=== PATIENT | female | born 1960 | race Caucasian/White ===

== ENCOUNTER → 2019-07-08 08:16 | Outpatient (BNVA) | payer MEDICARE, SELFPAY | PROVIDERS: Family Provider Internal Medicine; PCP Nurse Practitioner; Visit Provider Psychiatry & Neurology Psychiatry | DX: F33.2 Major depressive disorder, recurrent severe without psychotic features (principal); F41.1 Generalized anxiety disorder; F17.200 Nicotine dependence, unspecified, uncomplicated; F11.21 Opioid dependence, in remission; F15.20 Other stimulant dependence, uncomplicated | CPT/HCPCS: 99204 ==

== ENCOUNTER → 2019-08-05 08:28 | Outpatient (BNVA) | payer MEDICARE, SELFPAY | PROVIDERS: Family Provider Internal Medicine; PCP Nurse Practitioner; Visit Provider Psychiatry & Neurology Psychiatry | DX: F41.1 Generalized anxiety disorder (principal); F33.2 Major depressive disorder, recurrent severe without psychotic features; F15.20 Other stimulant dependence, uncomplicated; F11.21 Opioid dependence, in remission; F17.200 Nicotine dependence, unspecified, uncomplicated | CPT/HCPCS: 99214 ==

== ENCOUNTER → 2020-01-01 07:52 | Outpatient (BNVA) | payer MEDICARE, SELFPAY | PROVIDERS: Family Provider Internal Medicine; PCP Nurse Practitioner; Visit Provider Psychiatry & Neurology Psychiatry | DX: F41.1 Generalized anxiety disorder (principal); F33.2 Major depressive disorder, recurrent severe without psychotic features; F15.20 Other stimulant dependence, uncomplicated; F11.21 Opioid dependence, in remission; F17.200 Nicotine dependence, unspecified, uncomplicated; F43.12 Post-traumatic stress disorder, chronic | CPT/HCPCS: 99213 ==

== ENCOUNTER 2020-12-13 02:35 | Emergency (ER) | payer MEDICARE, SELFPAY ==
[2020-12-13 02:36] VITALS: BP 181/105; PULSE 79; RESP 14; TEMP 36.4; O2SAT 99; BMI 24.7
--- NOTE | 2020-12-13 02:54 | CTR_ITS ---
PROCEDURE INFORMATION: Exam: CT Abdomen And Pelvis With Contrast Exam date and time: 12/13/2020 2:54 AM Age: 60 years old Clinical indication: Prior surgery; Surgery type: Appy. RT nephrectomy. ; Patient HX: Severe nausea with back pain. History of renal cancer. ; Additional info: Rule out back infection TECHNIQUE: Imaging protocol: Computed tomography of the abdomen and pelvis with contrast. Radiation optimization: All CT scans at this facility use at least one of these dose optimization techniques: automated exposure control; mA and/or kV adjustment per patient size (includes targeted exams where dose is matched to clinical indication); or iterative reconstruction. Contrast material: OMNI 300; Contrast volume: 95 ml; Contrast route: INTRAVENOUS (IV); COMPARISON: CT abdomen pelvis wo con [id number] 03/05/2016 8:54 PM RADIATION DOSE METRICS: Total DLP (mGy-cm): 2100.51 FINDINGS: Liver: Normal. No mass. Gallbladder and bile ducts: Normal. No calcified stones. No ductal dilation. Pancreas: Normal. No ductal dilation. Spleen: Normal. No splenomegaly. Adrenal glands: There is a 16 x 8 mm isodense nodule in the right adrenal gland which has decreased in size since previous study and probably represents a benign adenoma. The left adrenal gland is unremarkable. Kidneys and ureters: Status post right nephrectomy. There is inhomogeneous enhancement of the left kidney with an appearance consistent with a left pyelonephritis. There is no hydronephrosis or renal calcification. There is minimal perinephric stranding but no significant fluid collection. Stomach and bowel: There are scattered diverticuli in the colon but there is no evidence of acute diverticulitis. There is no bowel obstruction or dilatation. Appendix: No evidence of appendicitis. Intraperitoneal space: Unremarkable. No free air. No significant fluid collection. Vasculature: There is calcification of the aorta there is no aneurysm. Lymph nodes: Unremarkable. No enlarged lymph nodes. Urinary bladder: Unremarkable as visualized. Reproductive: Unremarkable as visualized. Bones/joints: Degenerative changes in scoliosis are present in the spine with joint space narrowing sclerosis and osteophytes. There is bilateral L5 spondylolysis with grade 2 L5-S1 spondylolisthesis. Soft tissues: Unremarkable. CT/CT abdomen pelvis w con* [id number] IMPRESSION: Left pyelonephritis. Radiation Dose CTDIVOL = (mGy): DLP = 2100.51 (mGy-cm)
[2020-12-13 03:09] VITALS: BP 159/78
[2020-12-13] MEDS: cloNIDine 0.1 mg Tablet PO (03:09)
[2020-12-13] MEDS: ondansetron 4 MG Tablet PO (03:09)
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
[2020-12-13 03:41] LABS: Basophils # 0.1 10^3/uL (0.0-0.1); Basophils % 0.4 %; Eosinophils % 0.3 %; Hematocrit 41.4 % (37.0-47.0); Hemoglobin 14.2 g/dL (11.5-15.3); Lymphocytes # 1.8 10^3/uL (0.8-4.8); Lymphocytes % 15.5 %; Mean Corpuscular HGB Conc 34.3 g/dL (30.0-36.0); Mean Corpuscular Volume 84.7 fl (81-99); Mean Platelet Volume 8.9 fL (7.4-10.4); Monocytes # 0.5 10^3/uL (0.2-0.9); Monocytes % 4.6 %; Neutrophils # 8.99 10^3/uL (1.8-7.7); Neutrophils % 78.7 %; Nucleated Red Blood Cells % 0 %; Platelet Count 485 10^3/cmm (130-400); Red Blood Count 4.89 10^6/uL (4.1-5.3); Red Cell Distribution Width 12.5 % (12.1-15.1); White Blood Count 11.4 10^3/uL (4.0-10.0)
[2020-12-13] MEDS: haloperidol inj 5 mg/mL INJ 1 mL IVP (04:02)
[2020-12-13 04:07] LABS: Anion Gap 18.4 (5-19); Blood Urea Nitrogen 18 mg/dL (6-20); Calcium 9.9 mg/dL (8.5-10.5); Carbon Dioxide 23 mmol/L (22-29); Chloride 97 mmol/L (98-107); Glomerular Filtration Rate 41.9 mL/min (90-130); Glucose 162 mg/dL (65-115); Osmolality Calculated 285 mOsm/kg (285-295); Potassium 3.4 mmol/L (3.5-5.1); Sodium 135 mmol/L (136-145)
[2020-12-13] MEDS: iohexol 300 mg/mL 100 mL Btl IV (04:24)
[2020-12-13] MEDS: sodium chloride 0.9% 1,000 ML 999 ML IV (04:49)
[2020-12-13 06:00] VITALS: BP 149/92; PULSE 81; RESP 18; O2SAT 97
--- NOTE | 2020-12-13 06:22 | PC.NURSE ---
0515-ATTEMPTED TO ADMINISTER SUBOXONE FILM SUBLINGUALLY, FOUND PT TO BE SLEEPING. DR. HERNANDEZ NOTIFIED AND RECEIVED ORDERS TO DC MEDICATION.
[2020-12-13 06:25] VITALS: BP 141/79; PULSE 79; RESP 18; O2SAT 99
== END 2020-12-13 06:20 | disposition home or self-care (01) ==
PROVIDERS: Emergency Provider Emergency Medicine; PCP Family Medicine
DX: F11.23 Opioid dependence with withdrawal (principal); M54.9 Dorsalgia, unspecified; Z79.891 Long term (current) use of opiate analgesic; E11.9 Type 2 diabetes mellitus without complications; Z86.19 Personal history of other infectious and parasitic diseases; Z85.528 Personal history of other malignant neoplasm of kidney
CPT/HCPCS: 74177; 80048; 85025; 96361; 96374; 99283; J1630; J7030; Q0162; Q9967

== ENCOUNTER 2020-12-13 19:27 | Inpatient (IN) | payer MEDICARE, SELFPAY ==
[2020-12-13 19:53] VITALS: BP 124/77; PULSE 101; RESP 18; TEMP 36.6; O2SAT 100; BMI 29.2
[2020-12-13 21:18] VITALS: BP 155/103; PULSE 72; RESP 20; O2SAT 97
[2020-12-13 21:30] VITALS: BP 150/92; PULSE 95; RESP 18; O2SAT 100
[2020-12-13 22:18] LABS: Add Urine Microscopic? YES; Bilirubin Urine 1+ (Negative); Blood Urine 2+ (Negative); Glucose Urine UA Norm (Normal); Ketones Urine 2+ (Negative); Leukocyte Esterase Urine Trace (Negative); Nitrate Urine Negative (Negative); Protein Urine 3+ (Negative); Specific Gravity, Urine 1.015 (1.005-1.030); Urine Appearance Cloudy (CLEAR); Urine Color Yellow (Yellow); Urobilinogen Urine 4 mg/dL (Negative); pH Urine 6 (5-7)
[2020-12-13 22:21] LABS: Add Urine Culture? No; Bacteria Urine 4+ /hpf; Mucus Urine TRACE /hpf; Squamous Epithelial Cell Urine 25-40 /hpf (0-5); WBC Urine 25-40 /hpf (0-5)
[2020-12-13] MEDS: sodium chloride 0.9% 1,000 ML 999 ML IV (22:48)
[2020-12-13] MEDS: cefTRIAXone 1,000 MG in sodium chloride 0.9% (plus) 50 ML 100 MG IV (22:49)
[2020-12-13] MEDS: ondansetron 2 mg/ML SDV 2 mL 4 MG IVP (22:50)
[2020-12-13 22:55] LABS: Basophils # 0.1 10^3/uL (0.0-0.1); Basophils % 0.3 %; Hemoglobin 15.4 g/dL (11.5-15.3); Lymphocytes # 2.2 10^3/uL (0.8-4.8); Lymphocytes % 11.2 %; Mean Corpuscular Hemoglobin 28.9 pg (28.0-34.0); Mean Corpuscular Volume 82.6 fl (81-99); Mean Platelet Volume 9.2 fL (7.4-10.4); Monocytes # 1.1 10^3/uL (0.2-0.9); Monocytes % 5.7 %; Neutrophils # 15.86 10^3/uL (1.8-7.7); Neutrophils % 82.3 %; Nucleated Red Blood Cells % 0 %; Platelet Count 614 10^3/cmm (130-400); Red Blood Count 5.33 10^6/uL (4.1-5.3); Red Cell Distribution Width 12.5 % (12.1-15.1); White Blood Count 19.3 10^3/uL (4.0-10.0)
[2020-12-13 23:18] LABS: Alanine Aminotransferase 43 U/L (0-33); Albumin Level 4.5 g/dL (3.5-5.2); Alkaline Phosphatase 78 IU/L (35-105); Aspartate Amino Transferase 30 U/L (0-32); Blood Urea Nitrogen 22 mg/dL (6-20); Carbon Dioxide 18 mmol/L (22-29); Chloride 99 mmol/L (98-107); Globulin 4.8 g/dL (1.3-4.6); Glomerular Filtration Rate 41.9 mL/min (90-130); Glucose 154 mg/dL (65-115); Lipase 66 U/L (13-60); Osmolality Calculated 292 mOsm/kg (285-295); Sodium 138 mmol/L (136-145); Total Bilirubin 0.6 mg/dL (0.15-1.2); Total Protein 9.3 g/dL (6.6-8.7)
[2020-12-13 23:21] LABS: Anion Gap 24.2 (5-19); Potassium 3.2 mmol/L (3.5-5.1)
--- NOTE | 2020-12-13 23:31 | XRR_ITS ---
PROCEDURE INFORMATION: Exam: XR Chest Exam date and time: 12/13/2020 11:31 PM Age: 60 years old Clinical indication: Shortness of breath; Patient HX: SOB; Additional info: Pna? TECHNIQUE: Imaging protocol: XR of the chest. Views: 1 view. COMPARISON: CT kidney stone [id number] 12/14/2020 4:22 AM FINDINGS: Lungs: No consolidation or suggestion of ground-glass opacities. Pleural spaces: No pneumothorax or apparent pleural fluid. Heart/Mediastinum: Still no cardiomegaly. Vasculature: Aortic elongation. Bones/joints: [id number] right convexity of the thoracolumbar spine and slight left convexity of the midthoracic spine. Questionable old fracture of the right clavicular shaft. No suggestion of acute bony disease. XR/XR chest 1V portable [id number] IMPRESSION: No acute findings. Radiation Dose CTDIVOL = (mGy): DLP = (mGy-cm)
--- NOTE | 2020-12-13 23:41 | CTR_ITS ---
PROCEDURE INFORMATION: Exam: CT Abdomen And Pelvis Without Contrast Exam date and time: 12/13/2020 11:41 PM Age: 60 years old Clinical indication: Abdominal pain; Left; Prior surgery; Surgery type: RT nephrectomy. Appy. ; Patient HX: C/O persistent lt flank pain. History of renal cell carcinoma. Possible signs of nephritis noted on CT dated 12/13/2020. ; Additional info: Evaluate for stone TECHNIQUE: Imaging protocol: Computed tomography of the abdomen and pelvis without contrast. Radiation optimization: All CT scans at this facility use at least one of these dose optimization techniques: automated exposure control; mA and/or kV adjustment per patient size (includes targeted exams where dose is matched to clinical indication); or iterative reconstruction. COMPARISON: CT abdomen pelvis w con* [id number] 12/13/2020 4:20 AM RADIATION DOSE METRICS: Total DLP (mGy-cm): 888.73 FINDINGS: Lungs: Continued patchy slight stranding in the periphery of both lung bases. Liver: No definite change in the 6-7 mm mass in the posterior margin of the right lobe of the liver, too small to characterize. Still no other apparent liver mass. Gallbladder and bile ducts: Interval slight increase in the gallbladder distension. Interval increased density within the posterior gallbladder possibly due to vicarious excretion of contrast. Tiny dependent stones in the gallbladder not excluded. Continued mild prominence of the extrahepatic bile ducts. No interval biliary ductal dilatation. Pancreas: No suggestion of interval pancreatic disease. Still no ductal dilation. Spleen: Still no splenomegaly. Adrenal glands: Interval better visualization of 2 tiny calcifications within the right adrenal mass measuring about 2.5 cm deep by 11 mm wide suggesting no significant change in size on these thinner slices; density in the mass now 35 HU compared to 78 HU previously suggesting the presence of internal enhancement on the prior study. Still no apparent left adrenal mass. Kidneys and ureters: Right nephrectomy again evident. Areas of increased density within the left renal collecting system likely due to excreted contrast considering the contrast-enhanced CT yesterday. Still no hydronephrosis. Very small papillary calcification in the upper left kidney not excluded. No apparent left renal mass. No suggestion of a left ureteral stone. Continued slight stranding and minimal haziness in the left perirenal fat. Stomach and bowel: Continued moderate sigmoid and descending colonic diverticulosis. Retrohepatic and subdiaphragmatic positioning of the cecum in Morison's pouch still present. Still no obstruction. Nondistended stomach. Appendix: No evidence of appendicitis. Intraperitoneal space: Still no free air. No significant fluid collection. Vasculature: Continued atherosclerosis. Still no aortic aneurysm. Lymph nodes: Continued enlarged node to the left of the aorta just inferior to the left renal artery. No suggestion of interval adenopathy. Urinary bladder: Unremarkable as visualized. Reproductive: Unremarkable as visualized. Bones/joints: Continued at least mild S-shaped thoracolumbar rotoscoliosis. Bilateral L5 spondylolysis again evident along with grade 2 spondylolisthesis and marked disc narrowing at L5-S1. Continued prominent degeneration of several other discs. Old compression fractures still present. Soft tissues: Interval appearance of the cluster of gas bubbles in the subcutaneous fat of the right lower anterior abdominal wall consistent with a recent injection. CT/CT kidney stone [id number] IMPRESSION: 1. No apparent acute findings since yesterday. Apparent excreted contrast in the left collecting system, but no interval left hydronephrosis. No suggestion of a left ureteral stone. Very small papillary calcification in the upper left kidney not excluded. Right nephrectomy again evident. 2. Continued enlarged left para-aortic node just inferior to the left renal artery. 3. Interval slight increase in the gallbladder distension and appearance of probable vicarious excretion of contrast. Tiny dependent gallstones not excluded. 4. No obvious change in size of the right adrenal mass; comparison of the current and prior densities of the mass indicative of the likelihood of enhancement within it. Considering the history of right renal cancer, follow-up non-emergent adrenal CT recommended. Non-emergent chemical shift MRI (CS-MR) may be considered. (Reference: Cristin) 5. No change in the 6-7 mm right liver mass, too small to characterize. 6. Bilateral L5 spondylolysis and associated grade 2 spondylolisthesis and marked disc degeneration at L5-S1 still present. Other findings detailed above. COMMENTS: Consistent with the [employer]'s Incidental Findings Committee white paper (J Am Ruy Radiol 2018): Any incidental renal lesion less than 1 cm or classified as too small to characterize, or any incidental cystic renal lesion characterized as simple-appearing, is likely benign. No follow-up imaging is recommended for these lesions per consensus recommendations based on imaging criteria. REFERENCES: Cristin WATTS, et al. Management of Incidental Adrenal Masses: A White Paper of the ACR Incidental Findings Committee. J Am Ruy Radiol. 2017;14(8):8709-6724. Radiation Dose CTDIVOL = (mGy): DLP = 888.73 (mGy-cm)
--- NOTE | 2020-12-13 23:46 | ED_ITS ---
HPI - General Adult General: Chief complaint: General Medical Stated complaint: back pain/re eval per Mu Time Seen by Provider: 12/13/20 19:49 History of Present Illness: HPI narrative: 60-year-old female presenting to the emergency room after she was seen earlier this morning for back pain. At that point time, patient was found to have pyelonephritis on the CT scan. Since her discharge, patient has filled worsening pain, nausea/vomiting. Onset: 3 days ago Duration:3 days Location: home Severity:moderate/severe Review of Systems Narrative: Constitutional: No fever, no chills. HEENT: No vision changes CV: No chest pain, no palpitations PULM: no cough, no dyspnea. GI: +L sided back pain, +N/+V/-D. : No dysuria MSKEL: No muscle pain SKIN: No new rashes, no lesions. NEURO: No headache, no focal weakness. HEME: No visible bruises PSYCH: Normal mood PFSH ED PFSH: Medical History (Updated 12/14/20 @ 00:26 by Sherice Rodrigues MD) Anxiety Diabetes Hepatitis C Methadone dependence Renal cell carcinoma Surgical History (Updated 12/14/20 @ 00:26 by Sherice Rodrigues MD) History of right nephrectomy Social History Current gender identity: Female Female Reproductive History: Date of last menstrual period: 06/02/20 Physical Exam Narrative: EXAM NARRATIVE: Head: Atraumatic Eyes: PERRL, conjunctiva without injection ENT: Mucous membrane moist NECK: Supple, ROM intact LUNGS: LCTAB, no crackles/rhonchi CV: RRR ABDOMEN: Soft, nontender in all quadrants, +moderate L CVA ttp EXTREMITY: Normal ROM SKIN: No rash or erythema NEURO: Awake and alert, no focal motor deficits PSYCH: Normal mood and affect Course Vital Signs: Vital signs: Vital Signs Temperature 98.8 F 12/16/20 13:31 Pulse Rate 88 12/16/20 13:31 Respiratory Rate 18 12/16/20 13:31 Blood Pressure 115/76 12/16/20 13:31 Pulse Oximetry 96 12/16/20 13:31 MDM - General Adult MDM Narrative: Medical decision making narrative: 60-year-old female presenting to the emergency room for complaints of worsening pyelonephritis symptoms. On exam, patient is moderate distress HDS in moderate distress, +left CVA tenderness. White count of 19.3 up from 11.3. Creatinine continue to be 1.3. Patient for significant nausea vomiting unable to tolerate p.o. medicine. Patient received Zofran in the emergency room. Will be admitted to hospital for IV antibiotics ceftriaxone. Will repeat CT abdomen pelvis. Urine culture sent. Disposition: Admission for observation Lab Data: Labs: Lab Results 12/13/20 12/13/20 12/13/20 21:45 21:45 22:30 WBC 19.3 10^3/uL H 10 ^3/uL (4.0-10.0) RBC 5.33 10^6/uL H 10 ^6/uL (4.1-5.3) Hgb 15.4 g/dL H g/dL (11.5-15.3) Hct 44.0 % % (37.0-47.0) MCV 82.6 fl fl (81-99) MCH 28.9 pg pg (28.0-34.0) MCHC 35.0 g/dL g/dL (30.0-36.0) RDW 12.5 % % (12.1-15.1) Plt Count 614 10^3/cmm H 10 ^3/cmm (130-400) MPV 9.2 fL fL (7.4-10.4) Neut % (Auto) 82.3 % % Lymph % (Auto) 11.2 % % [place] % (Auto) 5.7 % % Eos % (Auto) 0.0 % % Baso % (Auto) 0.3 % % Neut # (Auto) 15.86 10^3/uL H 1 0^3/uL (1.8-7.7) Lymph # (Auto) 2.2 10^3/uL 10^3/ uL (0.8-4.8) [place] # (Auto) 1.1 10^3/uL H 10^ 3/uL (0.2-0.9) Eos # (Auto) 0.0 10^3/uL 10^3/ uL (0.0-0.8) Baso # (Auto) 0.1 10^3/uL 10^3/ uL (0.0-0.1) Nucleated RBC % (a uto) 0 % % Nucleated RBCs # 0.0 /100WBC /100W BC Sodium Potassium Chloride Carbon Dioxide Anion Gap BUN Creatinine GFR Calculation Glucose Calculated Osmolal ity Calcium Total Bilirubin AST ALT Alkaline Phosphata se Total Protein Albumin Globulin Lipase Urine Color Yellow (Yellow) Urine Appearance Cloudy (CLEAR) Urine pH 6 (5-7) Ur Specific Gravit y 1.015 (1.005-1.030) Urine Protein 3+ H (Negative) Urine Glucose (UA) Norm (Normal) Urine Ketones 2+ H (Negative) Urine Blood 2+ H (Negative) Urine Nitrate Negative (Negative) Urine Bilirubin 1+ H (Negative) Urine Urobilinogen 4 mg/dL H mg/dL (Negative) Ur Leukocyte Renetta ase Trace H (Negative) Urine RBC 5-10 /hpf H /hpf (0-2) Urine WBC 25-40 /hpf H /hpf (0-5) Ur Squamous Epith Cells 25-40 /hpf H /hpf (0-5) Amorphous Sediment Not Reportable Urine Bacteria 4+ /hpf H /hpf (NONE) Urine Mucus Trace /hpf /hpf Urine Opiates Scre en Negative ng/mL ng /mL (Negative) Ur Barbiturates Sc reen Negative ng/mL ng /mL (Negative) Ur Phencyclidine S crn Negative ng/mL ng /mL (Negative) Ur Amphetamines Sc reen Positive ng/mL H ng/mL (Negative) U Benzodiazepines Scrn Positive ng/mL H ng/mL (Negative) Urine Cocaine Scre en Negative ng/mL ng /mL (Negative) U Marijuana (THC) Screen Negative ng/mL ng /mL (Negative) 12/13/20 22:30 WBC RBC Hgb Hct MCV MCH MCHC RDW Plt Count MPV Neut % (Auto) Lymph % (Auto) [place] % (Auto) Eos % (Auto) Baso % (Auto) Neut # (Auto) Lymph # (Auto) [place] # (Auto) Eos # (Auto) Baso # (Auto) Nucleated RBC % (a uto) Nucleated RBCs # Sodium 138 mmol/L mmol/L (136-145) Potassium 3.2 mmol/L L mmol /L (3.5-5.1) Chloride 99 mmol/L mmol/L (98-107) Carbon Dioxide 18 mmol/L L mmol/ L (22-29) Anion Gap 24.2 H (5-19) BUN 22 mg/dL H mg/dL (6-20) Creatinine 1.3 mg/dL H mg/dL (0.5-0.9) GFR Calculation 41.9 mL/min L mL/ min (90-130) Glucose 154 mg/dL H mg/dL (65-115) Calculated Osmolal ity 292 mOsm/kg mOsm/ kg (285-295) Calcium 10.0 mg/dL mg/dL (8.5-10.5) Total Bilirubin 0.6 mg/dL mg/dL (0.15-1.2) AST 30 U/L U/L (0-32) ALT 43 U/L H U/L (0-33) Alkaline Phosphata se 78 IU/L IU/L (35-105) Total Protein 9.3 g/dL H g/dL (6.6-8.7) Albumin 4.5 g/dL g/dL (3.5-5.2) Globulin 4.8 g/dL H g/dL (1.3-4.6) Lipase 66 U/L H U/L (13-60) Urine Color Urine Appearance Urine pH Ur Specific Gravit y Urine Protein Urine Glucose (UA) Urine Ketones Urine Blood Urine Nitrate Urine Bilirubin Urine Urobilinogen Ur Leukocyte Renetta ase Urine RBC Urine WBC Ur Squamous Epith Cells Amorphous Sediment Urine Bacteria Urine Mucus Urine Opiates Scre en Ur Barbiturates Sc reen Ur Phencyclidine S crn Ur Amphetamines Sc reen U Benzodiazepines Scrn Urine Cocaine Scre en U Marijuana (THC) Screen Discharge Plan Discharge Patient Disposition: Admitted As Inpatient Admit Provider: Sherice Rodrigues Clinical Impression: Pyelonephritis Condition: Stable Discharge Diet: Cardiac Discharge Activity: Increase activity as tolerated Coding Level of Care Code ED Tank Charger for Leanne Bal
[2020-12-14] VITALS (13 sets, daily range): BP systolic 145–194; BP diastolic 82–117; PULSE 87–98; RESP 16–22; TEMP 36.6–37.2; O2SAT 94–100; BMI 28.3
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
--- NOTE | 2020-12-14 00:53 | PC.NURSE ---
Admit Note Patient admitted to [Med/surg room 276-2] from [ER] via [wheelchair]. Covering service notified. Patient presents with [flank pain]. Orders reviewed & will continue to monitor. Patient and/or quality assurance representative oriented to environment, equipment, and informed of the following as found in the admission booklet: patient rights & responsibilities, visitor policy, hand and respiratory hygiene practice. Other education includes: [pain management, safety, medications]. Patient and/or quality assurance representative [verbalized understanding].
[2020-12-14] MEDS: morphine 4 mg/mL SDV 1 mL 2 MG IVP (01:29)
[2020-12-14] MEDS: enoxaparin 40 mg/0.4 mL Syringe SUBCUT (01:31)
[2020-12-14] MEDS: ondansetron 2 mg/ML SDV 2 mL 4 MG IVP (01:31)
[2020-12-14] MEDS: sodium chlor 0.9% + KCl 20 mEq 20 MEQ/1,000 ML BAG 75 MEQ IV (01:32)
[2020-12-14 02:45] LABS: Amphetamines Screen Urine Positive (Negative); Barbiturates Screen Urine Negative (Negative); Benzodiazepines Screen Urine Positive (Negative); Cocaine Screen Urine Negative (Negative); Opiate Screen Urine Negative (Negative); PCP Screen Urine Negative (Negative); THC Screen Urine Negative (Negative)
--- NOTE | 2020-12-14 02:50 | PC.NURSE ---
Message unread that was sent at [address] Rodrigues, paged at [phone] patient continuing to have pain, current pain medication not working. BP elevated as well 194/111. Orders received, see MAR read back. Will continue to monitor patient.
[2020-12-14] MEDS: HYDROmorphone 1 mg/mL INJ 1 mL 0.5 MG IVP ×2 (03:03→08:52)
[2020-12-14] MEDS: hyDRALAzine 20 mg/mL INJ 1 mL 10 MG IVP (03:04)
[2020-12-14 06:41] LABS: Glucose Point of Care 165 mg/dL (70-110)
[2020-12-14] MEDS: fluoxetine 20 mg Capsule 40 MG PO ×2 (07:52→17:32)
[2020-12-14] MEDS: pantoprazole DR 40 mg Tablet PO (07:52)
[2020-12-14] MEDS: BuSPIRONE 10 mg Tablet PO ×3 (07:52→21:28)
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
[2020-12-14] MEDS: methadone 10 mg Tablet 100 MG PO (10:47)
[2020-12-14 11:46] LABS: Glucose Point of Care 154 mg/dL (70-110)
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
[2020-12-14] MEDS: potassium chloride ER 20 mEq Tablet PO (13:59)
[2020-12-14 17:37] LABS: Glucose Point of Care 145 mg/dL (70-110)
[2020-12-14 20:54] LABS: Glucose Point of Care 162 mg/dL (70-110)
[2020-12-14] MEDS: cefTRIAXone 1,000 MG in sodium chloride 0.9% (plus) 50 ML 100 MG IV (21:27)
[2020-12-15] MEDS: enoxaparin 40 mg/0.4 mL Syringe SUBCUT (00:23)
--- NOTE | 2020-12-15 02:29 | PC.NURSE ---
pt given sugar free prune juice to help with bm
[2020-12-15 03:56] VITALS: BP 168/102; PULSE 87; RESP 16; TEMP 36.8; O2SAT 97
--- NOTE | 2020-12-15 05:42 | PC.NURSE ---
Dr. Rodrigues notified of pt bp. amlodipine 5mg po x1 ordered/readback.
[2020-12-15] MEDS: amlodipine 5 mg Tablet PO (06:00)
[2020-12-15 06:26] LABS: Basophils % 0.2 %; Eosinophils % 0.1 %; Hematocrit 44.2 % (37.0-47.0); Hemoglobin 14.6 g/dL (11.5-15.3); Lymphocytes % 11.5 %; Mean Corpuscular Hemoglobin 28.5 pg (28.0-34.0); Mean Corpuscular Volume 86.3 fl (81-99); Mean Platelet Volume 9.3 fL (7.4-10.4); Monocytes # 1.3 10^3/uL (0.2-0.9); Neutrophils # 14.29 10^3/uL (1.8-7.7); Neutrophils % 80.3 %; Nucleated Red Blood Cells % 0 %; Platelet Count 527 10^3/cmm (130-400); Red Blood Count 5.12 10^6/uL (4.1-5.3); Red Cell Distribution Width 12.9 % (12.1-15.1); White Blood Count 17.8 10^3/uL (4.0-10.0)
[2020-12-15 06:38] LABS: Lactic Sepsis W/Reflex 1.1 mmol/L (0.5-2.2)
[2020-12-15 06:49] LABS: Alanine Aminotransferase 47 U/L (0-33); Alkaline Phosphatase 74 IU/L (35-105); Anion Gap 15.2 (5-19); Aspartate Amino Transferase 59 U/L (0-32); Blood Urea Nitrogen 26 mg/dL (6-20); Calcium 8.9 mg/dL (8.5-10.5); Carbon Dioxide 22 mmol/L (22-29); Chloride 101 mmol/L (98-107); Globulin 3.7 g/dL (1.3-4.6); Glomerular Filtration Rate 41.9 mL/min (90-130); Glucose 167 mg/dL (65-115); Magnesium 1.9 mg/dL (1.7-2.3); Osmolality Calculated 289 mOsm/kg (285-295); Potassium 3.2 mmol/L (3.5-5.1); Sodium 135 mmol/L (136-145); Total Bilirubin 0.4 mg/dL (0.15-1.2); Total Protein 7.7 g/dL (6.6-8.7)
[2020-12-15 07:08] LABS: Procalcitonin 0.29 ng/mL (0-0.5)
[2020-12-15 07:23] LABS: Glucose Point of Care 164 mg/dL (70-110)
[2020-12-15 07:50] VITALS: BP 158/67; PULSE 95; RESP 19; TEMP 36.4; O2SAT 99
[2020-12-15 07:53] VITALS: RESP 18
[2020-12-15] MEDS: methadone 10 mg Tablet 100 MG PO (07:53)
[2020-12-15] MEDS: fluoxetine 20 mg Capsule 40 MG PO ×2 (07:54→17:34)
[2020-12-15] MEDS: BuSPIRONE 10 mg Tablet PO ×3 (07:54→20:07)
[2020-12-15] MEDS: pantoprazole DR 40 mg Tablet PO (07:54)
[2020-12-15] MEDS: potassium chloride ER 20 mEq Tablet 40 MEQ PO (10:02)
[2020-12-15 11:26] LABS: Glucose Point of Care 145 mg/dL (70-110)
[2020-12-15 11:31] VITALS: BP 165/84; PULSE 84; RESP 18; TEMP 36.6; O2SAT 98
--- NOTE | 2020-12-15 15:21 | P.PN_ITS ---
Subjective Subjective: Interval history: Patient still endorsing left flank pain Leukocytosis 17,000 afebrile Creatinine 1.3 Patient is endorsing poor appetite however she has been trying to drink more fluids Vitals/I&O/Wt Last Vital Signs Temp 97.8 F 12/15/20 11:31 Pulse 84 12/15/20 11:31 Resp 18 12/15/20 11:31 BP 165/84 12/15/20 11:31 Pulse Ox 98 12/15/20 11:31 12/15/20 12/15/20 12/15/20 06:59 14:59 22:59 Intake Total 1862 / 3467 720 / 720 Output Total 370 / 1120 Balance 1492 / 2347 720 / 720 Weight last 48 hrs Weight 72.575 kg Weight 72.575 kg Physical Exam Narrative: EXAM NARRATIVE: Patient was laying in right lateral position with her hand on left flank Awake alert oriented x3 GCS 15 S1, S2 Abdomen soft Lower extremity no edema EOMI, PERRLA No neurological deficit Saturating well on room air Data : 12/15/20 05:45 12/15/20 05:45 Micro: Microbiology 12/13/20 21:45 Urine Culture - Preliminary Urine,Clean Catch Gram Negative Rods 12/15/20 10:16 Blood Culture - Preliminary Blood SPECIMEN COLLECTED 12/15/20 10:13 Blood Culture - Preliminary Blood SPECIMEN COLLECTED A&P Assessment and plan (1) Methadone dependence: Status: Acute (2) Opiate withdrawal: Status: Acute (3) Back pain: Status: Acute (4) Pyelonephritis: Status: Acute Additional A&P Information Left-sided pyelonephritis Leukocytosis improving, she has been afebrile, continue ceftriaxone, will follow with urine cultures, urine preliminary report showing gram-negative rods Hypokalemia: Repleted Acute on chronic kidney disease seems secondary dehydration we will start normal saline to improve her hydration Opiate dependence continue methadone 100 mg daily Planning to discharge tomorrow Consistent carb diet Attestations Medical Necessity Statement*: Anticipating discharge tomorrow Time Spent in Patient Care: less than 15 minutes Coding Level of Care Code Acute [employer] Worker for g Fwd Diagnoses Methadone dependence F11.20 Opiate withdrawal F11.23 Back pain M54.9 Pyelonephritis N12
[2020-12-15 15:22] VITALS: BP 152/82; PULSE 74; RESP 18; TEMP 37; O2SAT 97
[2020-12-15] MEDS: sodium chlor 0.9% + KCl 20 mEq 20 MEQ/1,000 ML BAG 75 MEQ IV (16:03)
[2020-12-15] MEDS: glycerin adult supp 1 EACH PR (16:03)
[2020-12-15 17:11] LABS: Glucose Point of Care 142 mg/dL (70-110)
[2020-12-15] MEDS: insulin lispro 100 unit/1 mL SUBCUT (17:34)
[2020-12-15 20:00] VITALS: BP 165/103; PULSE 90; RESP 17; TEMP 36.4; O2SAT 98
[2020-12-15] MEDS: cefTRIAXone 1,000 MG in sodium chloride 0.9% (plus) 50 ML 100 MG IV (20:07)
[2020-12-15 20:33] LABS: Glucose Point of Care 131 mg/dL (70-110)
[2020-12-16] VITALS: BP 186/102; PULSE 90; RESP 19; TEMP 37.1; O2SAT 97
[2020-12-16] MEDS: dicyclomine 10 mg Capsule PO (00:31)
[2020-12-16] MEDS: enoxaparin 40 mg/0.4 mL Syringe SUBCUT (00:31)
[2020-12-16] MEDS: labetalol 5 mg/mL SDV 20mL 10 MG IVP (00:48)
[2020-12-16] MEDS: CLONazepam 1 mg Tablet PO (00:48)
[2020-12-16] MEDS: acetaminophen 1,000 MG/100 ML PIGGYBACK 400 MG IV (00:49)
[2020-12-16] MEDS: ondansetron 2 mg/ML SDV 2 mL 4 MG IVP (01:02)
[2020-12-16 04:00] VITALS: PULSE 81; RESP 17; TEMP 36.8
[2020-12-16] MEDS: buPROPion XL (24 HR) 300 mg Tablet PO (05:30)
[2020-12-16] MEDS: sodium chlor 0.9% + KCl 20 mEq 20 MEQ/1,000 ML BAG 75 MEQ IV (05:30)
[2020-12-16 06:33] LABS: Glucose Point of Care 137 mg/dL (70-110)
[2020-12-16 06:38] LABS: Basophils # 0.1 10^3/uL (0.0-0.1); Basophils % 0.3 %; Eosinophils # 0.1 10^3/uL (0.0-0.8); Eosinophils % 0.3 %; Hematocrit 41.8 % (37.0-47.0); Hemoglobin 13.9 g/dL (11.5-15.3); Lymphocytes # 2.2 10^3/uL (0.8-4.8); Lymphocytes % 14.2 %; Mean Corpuscular HGB Conc 33.3 g/dL (30.0-36.0); Mean Corpuscular Hemoglobin 29.3 pg (28.0-34.0); Mean Corpuscular Volume 88.2 fl (81-99); Mean Platelet Volume 9.4 fL (7.4-10.4); Monocytes # 1.4 10^3/uL (0.2-0.9); Monocytes % 8.5 %; Nucleated Red Blood Cells % 0 %; Platelet Count 382 10^3/cmm (130-400); Red Blood Count 4.74 10^6/uL (4.1-5.3); Red Cell Distribution Width 12.7 % (12.1-15.1); White Blood Count 15.8 10^3/uL (4.0-10.0)
[2020-12-16 06:57] LABS: Anion Gap 12.7 (5-19); Blood Urea Nitrogen 20 mg/dL (6-20); Calcium 8.6 mg/dL (8.5-10.5); Carbon Dioxide 22 mmol/L (22-29); Chloride 102 mmol/L (98-107); Glucose 147 mg/dL (65-115); Osmolality Calculated 281 mOsm/kg (285-295); Potassium 3.7 mmol/L (3.5-5.1); Sodium 133 mmol/L (136-145)
[2020-12-16 07:53] VITALS: BP 171/115; PULSE 90; RESP 17; TEMP 37.1; O2SAT 98
[2020-12-16] MEDS: polyethylene glycol 3350 Pkt 17 gm PO (08:17)
[2020-12-16] MEDS: BuSPIRONE 10 mg Tablet PO (08:17)
[2020-12-16] MEDS: potassium chloride ER 20 mEq Tablet 40 MEQ PO (08:17)
[2020-12-16] MEDS: pantoprazole DR 40 mg Tablet PO (08:17)
[2020-12-16] MEDS: fluoxetine 20 mg Capsule 40 MG PO (08:17)
[2020-12-16] MEDS: sennosides-docusate Tablet 2 TAB PO (08:18)
[2020-12-16] MEDS: nicotine 21 mg Patch 1 PATCH TRANSDERMA (08:18)
[2020-12-16 08:19] VITALS: RESP 18
[2020-12-16] MEDS: amlodipine 10 mg Tablet PO (08:19)
[2020-12-16] MEDS: methadone 10 mg Tablet 100 MG PO (08:19)
[2020-12-16 08:20] LABS: Glucose Point of Care 137 mg/dL (70-110)
[2020-12-16] MEDS: hyDRALAzine 20 mg/mL INJ 1 mL IVP (10:07)
[2020-12-16] MEDS: cloNIDine 0.1 mg Tablet PO (10:08)
--- NOTE | 2020-12-16 11:23 | PC.CHAP ---
Pastoral Care Encounter/Spiritual Assessment Type of Contact [] Declined contract loader visit [] Patient/Family/Request visit [] Outpatient visit [] Follow-up visit [] Physician referral [] Code/Alert [x] Routine visit [] Staff referral [] Actively dying [] Patient sleeping [] Family support [] [] Out of room [] Palliative care [] [] Receiving care in room [] Pre-surgical visit [] Trauma [] Long length of stay [] ICU visit [] Other: Relational/Emotional Strength [] Patient feels connected with others/family/visitors/staff [] Distress [] Loneliness/isolation [] Abandonment Spirituality of Patient [] Person of Dori [] Attends Sabianism of their Dori [] Believes in Prayer [] Reads Bible or Uatsdin materials [] There are Spiritual issues to be addressed Staff Anesthesiologist Interventions [x] Prayer [x] Active listening [x] Non-anxious presence [x] Spiritual/emotional support [] Crisis/trauma care [] Spiritual counseling [] Bereavement support [] Provided bereavement packet [] Provided Bible/devotional materials [] Provided toy/stuffed animal, coloring book to patient or family member [] Provided Communion [] Anointing/[place] [] Salvation [x] Completed spiritual assessment [] Other: Impact on Illness or Injury [] Angry [] Fearful [] Anxious [] Often cries [] Exhaustion [] Unable to work [] Unable to attend rastafari [] Unable to walk/stand [] Unable to read [] Unable to drive [] Unable to eat/drink [] Unable to sleep [] Unable to be with family [] Patient intubated [] Other: Summary issues have been resolved ready to return home Time spent with patient 5 min
[2020-12-16 11:28] VITALS: BP 115/76; PULSE 88; RESP 18; TEMP 37.1; O2SAT 96
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
--- NOTE | 2020-12-16 12:39 | PC.SOCIAL ---
Pg 2 IMM Explained to pt & spouse, Pg 2 IMM. No questions voiced. Provided pt a copy. Initialed, dated, & timed a copy & placed in chart.
[2020-12-16 13:31] VITALS: BP 115/76; PULSE 88; RESP 18; TEMP 37.1; O2SAT 96
--- NOTE | 2020-12-21 15:20 | PC.SOCIAL ---
discharge follow up call made, spoke with patient. patient is taking new medications as prescribed along with home medications. patient received her walker and is using. patient given follow up appointment date and time with Dr. Glynn. Patient denies any questions or concerns.
== END 2020-12-16 13:33 | disposition home or self-care (01) | DRG 690 ==
LOC: ER 23:49 → MEDSURG 12-14 00:25
PROVIDERS: Admitting Provider Student in an Organized Health Care Education/Training Program; Emergency Provider Emergency Medicine; PCP Family Medicine; Visit Provider Internal Medicine
DX: N10 Acute pyelonephritis (principal); F11.23 Opioid dependence with withdrawal; F41.9 Anxiety disorder, unspecified; E11.9 Type 2 diabetes mellitus without complications; Z86.19 Personal history of other infectious and parasitic diseases; T40.2X5A Adverse effect of other opioids, initial encounter; Z85.528 Personal history of other malignant neoplasm of kidney; Z90.5 Acquired absence of kidney; B96.20 Unspecified Escherichia coli [E. coli] as the cause of diseases classified elsewhere; I10 Essential (primary) hypertension; Z79.84 Long term (current) use of oral hypoglycemic drugs; Z79.4 Long term (current) use of insulin
CPT/HCPCS: 36415; 36416; 71045; 74176; 74177; 80048; 80053; 80306; 81001; 82962; 83605; 83690; 83735; 84145; 85025; 87040; 87077; 87086; 87186; 96361; 96365; 96372; 96374; 96375; 99283; 99285; J0360; J0696; J1170; J1630; J1650; J1815; J2270; J2405; J3490; J7030; Q0162; Q9967

== ENCOUNTER 2021-02-10 13:34 | Emergency (ER) | payer MEDICARE, SELFPAY ==
[2021-02-10 13:41] VITALS: BP 130/74; PULSE 79; RESP 16; TEMP 36.9; O2SAT 95
--- NOTE | 2021-02-10 14:59 | W.ED.SKABFB ---
Documented by User: Deisy Rizzo PA-C 02/10/21 16:06 HPI - Skin/Abscess/Foreign Bdy General: Chief complaint: Skin/Abscess/Foreign Body Stated complaint: R ANKLE CELLULITIS (P/UCC),TRAVELING UP LEG Time Seen by Provider: 02/10/21 14:37 Source: patient Mode of arrival: ambulatory Limitations: no limitations History of Present Illness: HPI narrative: 60-year-old female presents the ER today for right lower extremity swelling, pain, redness x1 week. Patient reports she had a cellulitis in that leg and was treated with clindamycin. She reports the redness was at that time and the ankle and that did improve however the redness started moving up that same leg and is now in the calf and behind the knee. Patient reports moderate swelling and pain located just below the knee. Patient reports pain is worse with movement and with walking. She has not taken anything at home for this at this time. Patient reports a history of renal cancer. Patient denies headache, fever, chills, chest pain, shortness of breath, nausea, vomiting, diarrhea, constipation. MD complaint: discoloration and other Onset (ago): week(s) Location: RLE Severity: moderate Severity scale (1-10): 7 Quality: burning and aching Pain Consistency: constant Relieving factors: rest Exacerbating factors: movement Associated symptoms: Deny chills, fever(s), nausea or vomiting Treatments prior to arrival: antibiotic Review of Systems General: Reports: 10 or more systems reviewed and unremarkable except in HPI and below Const: Denies: fever(s), chills or body aches ENMT: Denies: throat pain, nasal discharge or nasal congestion Card: Reports: edema; Denies: chest pain, palpitations, dyspnea on exertion, orthopnea or acrocyanosis Resp: Denies: dyspnea, productive cough or wheezing GI: Denies: abdominal pain, nausea, vomiting, diarrhea or constipation Musc: Reports: extremity pain and extremity swelling; Denies: neck pain or back pain Skin/Breast: Denies: rash Neuro: Denies: headache(s) PFSH ED PFSH: Medical History Anxiety Diabetes Hepatitis C Methadone dependence Renal cell carcinoma Surgical History History of right nephrectomy Social History Current gender identity: Female Female Reproductive History: Date of last menstrual period: 06/02/20 Physical Exam Const: COMMON NORMALS: average body habitus and patient oriented x3 GENERAL APPEARANCE: cooperative and lethargic; not comfortable NUTRITIONAL APPEARANCE: thin ORIENTATION/CONSCIOUSNESS: Yes lethargic HENMT: COMMON NORMALS: normocephalic, external ears normal and Normal external nose present HEAD & SCALP: normocephalic NOSE: Normal external nose present EXTERNAL EAR: Yes external ears normal Eye: COMMON NORMALS: conjunctivae normal CONJUNCTIVA: Yes conjunctivae normal Resp: COMMON NORMALS: normal respiratory effort and clear to auscultation bilaterally EFFORT & INSPECTION: Yes able to speak in complete sentences AUSCULTATION: clear to auscultation bilaterally Cardio: COMMON NORMALS: regular rate and regular rhythm RATE: regular rate RHYTHM: regular rhythm GI: COMMON NORMALS: Normal to inspection, nondistended, normoactive bowel sounds present, Soft to palpation and non-tender PALPATION: Yes Soft to palpation Extremity: RIGHT LOWER EXTREMITY: Yes lower leg (mild/mod erythema noted from ankle to knee) Right lower leg: Yes inspection, Yes palpation (TTP posterior interior knee) and Yes neurovascular exam (intact) Neuro: COMMON NORMALS: patient oriented x3, CN's II-XII intact bilaterally and moves all extremities SENSORIUM/ORIENTATION: Yes lethargic Psych: COMMON NORMALS: cooperative SPEECH: Yes slow MOOD & AFFECT: Yes euthymic mood Skin: COMMON NORMALS: no rashes or lesions noted GENERAL SKIN EXAM: no rashes or lesions noted and erythema (RLE just above the ankle to below the knee) Course ED course: Patient presents to the ER today for right lower extremity swelling and redness. She reports this has been going on several weeks. Patient was treated for cellulitis of the right ankle with clindamycin. She reports the redness of the ankle did improve however she now has redness up the leg with swelling up to the knee which she did not have prior. Patient reports pain just below the right knee. Will get ultrasound to rule out DVT at this time. We will also do lab work. Patient has a history of cancer. Vital Signs: Vital signs: Vital Signs Temperature 98.4 F 02/10/21 13:41 Pulse Rate 79 02/10/21 13:41 Respiratory Rate 16 02/10/21 13:41 Blood Pressure 130/74 02/10/21 13:41 Pulse Oximetry 95 02/10/21 13:41 MDM - Skin/Abscess/Foreign Bdy MDM Narrative: Medical decision making narrative: 60-year-old female presents to the ER today for right lower extremity swelling, redness, pain. Patient had a recent cellulitis of the right ankle and was on clindamycin at that time. Patient reports the redness improved before worsening about 1 week after stopping medication. Patient reports there is pain that is worse with weightbearing and movement. Pain is located just below the knee and the calf region. Labs were done in ER today and are unremarkable. White count is normal. Ultrasound is negative for DVT. Likely this is a cellulitis beginning again. Will restart clindamycin as it was effective the last time. Patient should follow-up with her PCP in 3 to 5 days. Close return precautions discussed. Recommended compression stockings, rest and elevation at home. Patient verbalized understanding and is in agreement with this treatment plan. Lab Data: Labs: Lab Results 02/10/21 02/10/21 02/10/21 15:15 15:15 15:15 WBC 7.1 10^3/uL 10^3/ uL (4.0-10.0) RBC 3.67 10^6/uL L 10 ^6/uL (4.1-5.3) Hgb 10.7 g/dL L g/dL (11.5-15.3) Hct 33.5 % L % (37.0-47.0) MCV 91.3 fl fl (81-99) MCH 29.2 pg pg (28.0-34.0) MCHC 31.9 g/dL g/dL (30.0-36.0) RDW 12.7 % % (12.1-15.1) Plt Count 290 10^3/cmm 10^3 /cmm (130-400) MPV 9.3 fL fL (7.4-10.4) Neut % (Auto) 53.9 % % Lymph % (Auto) 31.0 % % [place] % (Auto) 11.1 % % Eos % (Auto) 2.4 % % Baso % (Auto) 0.6 % % Neut # (Auto) 3.84 10^3/uL 10^3 /uL (1.8-7.7) Lymph # (Auto) 2.2 10^3/uL 10^3/ uL (0.8-4.8) [place] # (Auto) 0.8 10^3/uL 10^3/ uL (0.2-0.9) Eos # (Auto) 0.2 10^3/uL 10^3/ uL (0.0-0.8) Baso # (Auto) 0.0 10^3/uL 10^3/ uL (0.0-0.1) Nucleated RBC % (a uto) 0 % % Nucleated RBCs # 0.0 /100WBC /100W BC Sodium 139 mmol/L mmol/L (136-145) Potassium 4.8 mmol/L mmol/L (3.5-5.1) Chloride 104 mmol/L mmol/L (98-107) Carbon Dioxide 24 mmol/L mmol/L (22-29) Anion Gap 15.8 (5-19) BUN 26 mg/dL H mg/dL (6-20) Creatinine 1.5 mg/dL H mg/dL (0.5-0.9) GFR Calculation 35.5 mL/min L mL/ min (90-130) Glucose 92 mg/dL mg/dL (65-115) Calculated Osmolal ity 292 mOsm/kg mOsm/ kg (285-295) Lactate 0.7 mmol/L mmol/L (0.5-2.2) Calcium 8.8 mg/dL mg/dL (8.5-10.5) Total Bilirubin 0.2 mg/dL mg/dL (0.15-1.2) AST 44 U/L H U/L (0-32) ALT 62 U/L H U/L (0-33) Alkaline Phosphata se 83 IU/L IU/L (35-105) C-Reactive Protein 9.2 mg/L H mg/L (0.0-4.9) Total Protein 7.0 g/dL g/dL (6.6-8.7) Albumin 4.0 g/dL g/dL (3.5-5.2) Globulin 3.0 g/dL g/dL (1.3-4.6) Imaging Data^: US Vascular: Radiologist's impression: Per US tech, neg for DVT Critical Care Time Critical Care Time: Critical Care Time: No Discharge Plan Discharge Patient Disposition: Home Clinical Impression: Cellulitis of right lower extremity without foot Condition: Stable Prescriptions: New clindamycin HCl 300 mg capsule 300 mg PO Q8H 10 Days Qty: 30 RF: 0 No Action lisinopril 20 mg tablet 20 mg PO QAM RF: 0 metformin 500 mg tablet 500 mg PO QAM RF: 0 Ozempic 0.25 mg or 0.5 mg(2 mg/1.5 mL) pen injector 0.5 mg SUBCUT Q7D RF: 0 albuterol sulfate [Ventolin HFA] 90 mcg/actuation HFA aerosol inhaler 2 puff INHALATION Q6H PRN (Reason: Shortness Of Breath) RF: 0 fluticasone propionate [Allergy Relief (fluticasone)] 50 mcg/actuation spray,suspension 2 spray INTRANASAL DAILY PRN (Reason: Allergy Symptoms) RF: 0 fluoxetine 40 mg capsule 40 mg PO BID Qty: 60 RF: 2 clonazepam 1 mg tablet 1 mg PO BEDTIME RF: 0 acetaminophen 500 mg Tablet 500 - 1,000 mg PO Q4H PRN (Reason: Pain) RF: 0 methadone 40 mg Tablet,Soluble 100 mg PO QAM RF: 0 Claritin 10 mg Tablet 10 mg PO DAILY PRN (Reason: Allergy Symptoms) RF: 0 atomoxetine 10 mg capsule 10 mg PO QAM RF: 0 bupropion HCl 300 mg tablet extended release 24 hr 300 mg PO QAM RF: 0 amlodipine 10 mg tablet 10 mg PO DAILY Qty: 30 RF: 1 Discharge Orders: Discharge ED (Routine); Ordered 02/10/21 Ordered By: Deisy Rizzo Referrals: Imani Glynn DO [Primary Care Provider] - Discharge Diet: Usual diet Discharge Activity: Limit activity as instructed Patient Instructions: Cellulitis (ED), Opioid Safety Activity Restrictions/Additional Instructions: Take clindamycin as prescribed. Wear compression stockings as discussed. Rest and elevation recommended. Follow-up with PCP in 3 to 5 days. Return to the ER with any new or worsening symptoms. Coding Level of Care Code ED Boil Off Machine Operator Cloth for Chg Fwd Exam Comprehensive Documented by User: Galindo Murray MD 02/14/21 00:35 HPI - Skin/Abscess/Foreign Bdy General: Chief complaint: Skin/Abscess/Foreign Body Stated complaint: R ANKLE CELLULITIS (P/UCC),TRAVELING UP LEG Time Seen by Provider: 02/10/21 14:37 PFSH ED PFSH: Medical History Anxiety Diabetes Hepatitis C Methadone dependence Renal cell carcinoma Surgical History History of right nephrectomy Social History Current gender identity: Female Course Vital Signs: Vital signs: Vital Signs Temperature 98.4 F 02/10/21 13:41 Pulse Rate 79 02/10/21 13:41 Respiratory Rate 16 02/10/21 13:41 Blood Pressure 130/74 02/10/21 13:41 Pulse Oximetry 95 02/10/21 13:41 MDM - Skin/Abscess/Foreign Bdy MDM Narrative: Medical decision making narrative: I have reviewed documentation. Galindo Murray MD Emergency Medicine Lab Data: Labs: Lab Results 02/10/21 02/10/21 02/10/21 15:15 15:15 15:15 WBC 7.1 10^3/uL 10^3/ uL (4.0-10.0) RBC 3.67 10^6/uL L 10 ^6/uL (4.1-5.3) Hgb 10.7 g/dL L g/dL (11.5-15.3) Hct 33.5 % L % (37.0-47.0) MCV 91.3 fl fl (81-99) MCH 29.2 pg pg (28.0-34.0) MCHC 31.9 g/dL g/dL (30.0-36.0) RDW 12.7 % % (12.1-15.1) Plt Count 290 10^3/cmm 10^3 /cmm (130-400) MPV 9.3 fL fL (7.4-10.4) Neut % (Auto) 53.9 % % Lymph % (Auto) 31.0 % % [place] % (Auto) 11.1 % % Eos % (Auto) 2.4 % % Baso % (Auto) 0.6 % % Neut # (Auto) 3.84 10^3/uL 10^3 /uL (1.8-7.7) Lymph # (Auto) 2.2 10^3/uL 10^3/ uL (0.8-4.8) [place] # (Auto) 0.8 10^3/uL 10^3/ uL (0.2-0.9) Eos # (Auto) 0.2 10^3/uL 10^3/ uL (0.0-0.8) Baso # (Auto) 0.0 10^3/uL 10^3/ uL (0.0-0.1) Nucleated RBC % (a uto) 0 % % Nucleated RBCs # 0.0 /100WBC /100W BC Sodium 139 mmol/L mmol/L (136-145) Potassium 4.8 mmol/L mmol/L (3.5-5.1) Chloride 104 mmol/L mmol/L (98-107) Carbon Dioxide 24 mmol/L mmol/L (22-29) Anion Gap 15.8 (5-19) BUN 26 mg/dL H mg/dL (6-20) Creatinine 1.5 mg/dL H mg/dL (0.5-0.9) GFR Calculation 35.5 mL/min L mL/ min (90-130) Glucose 92 mg/dL mg/dL (65-115) Calculated Osmolal ity 292 mOsm/kg mOsm/ kg (285-295) Lactate 0.7 mmol/L mmol/L (0.5-2.2) Calcium 8.8 mg/dL mg/dL (8.5-10.5) Total Bilirubin 0.2 mg/dL mg/dL (0.15-1.2) AST 44 U/L H U/L (0-32) ALT 62 U/L H U/L (0-33) Alkaline Phosphata se 83 IU/L IU/L (35-105) C-Reactive Protein 9.2 mg/L H mg/L (0.0-4.9) Total Protein 7.0 g/dL g/dL (6.6-8.7) Albumin 4.0 g/dL g/dL (3.5-5.2) Globulin 3.0 g/dL g/dL (1.3-4.6) Discharge Plan Discharge Patient Disposition: Home Clinical Impression: Cellulitis of right lower extremity without foot Condition: Stable Prescriptions: New clindamycin HCl 300 mg capsule 300 mg PO Q8H 10 Days Qty: 30 RF: 0 No Action lisinopril 20 mg tablet 20 mg PO QAM RF: 0 metformin 500 mg tablet 500 mg PO QAM RF: 0 Ozempic 0.25 mg or 0.5 mg(2 mg/1.5 mL) pen injector 0.5 mg SUBCUT Q7D RF: 0 albuterol sulfate [Ventolin HFA] 90 mcg/actuation HFA aerosol inhaler 2 puff INHALATION Q6H PRN (Reason: Shortness Of Breath) RF: 0 fluticasone propionate [Allergy Relief (fluticasone)] 50 mcg/actuation spray,suspension 2 spray INTRANASAL DAILY PRN (Reason: Allergy Symptoms) RF: 0 fluoxetine 40 mg capsule 40 mg PO BID Qty: 60 RF: 2 clonazepam 1 mg tablet 1 mg PO BEDTIME RF: 0 acetaminophen 500 mg Tablet 500 - 1,000 mg PO Q4H PRN (Reason: Pain) RF: 0 methadone 40 mg Tablet,Soluble 100 mg PO QAM RF: 0 Claritin 10 mg Tablet 10 mg PO DAILY PRN (Reason: Allergy Symptoms) RF: 0 atomoxetine 10 mg capsule 10 mg PO QAM RF: 0 bupropion HCl 300 mg tablet extended release 24 hr 300 mg PO QAM RF: 0 amlodipine 10 mg tablet 10 mg PO DAILY Qty: 30 RF: 1 Discharge Orders: Discharge ED (Routine); Ordered 02/10/21 Ordered By: Deisy Rizzo Referrals: Imani Glynn DO [Primary Care Provider] - Discharge Diet: Usual diet Discharge Activity: Limit activity as instructed Patient Instructions: Cellulitis (ED), Opioid Safety Activity Restrictions/Additional Instructions: Take clindamycin as prescribed. Wear compression stockings as discussed. Rest and elevation recommended. Follow-up with PCP in 3 to 5 days. Return to the ER with any new or worsening symptoms. Coding Level of Care Code ED Boil Off Machine Operator Cloth for Chg Fwd Exam Comprehensive
--- NOTE | 2021-02-10 15:11 | USCV_ITS ---
Ora Cooley Age: 60 Gender: F : 1960 Exam Date: 02/10/2021 15:30 Ordering Phys: Deisy Rizzo Technologist: Marianna Corona Exam Location: [facility] [place]_ Indication: RLE PAIN AND SWELLING HISTORY: Lower extremity swelling. Lower extremity pain. PROCEDURES: Venous duplex imaging was performed in only the right lower extremity. The following venous structures were evaluated: common femoral vein, profunda vein, proximal portion of the greater saphenous vein, superficial femoral vein, and the popliteal vein. In addition, the posterior tibial and peroneal trunk were evaluated. Serial compression, augmentation maneuvers, and spectral Doppler flow evaluation were performed. FINDINGS: No evidence of DVT seen in any vessel visualized at this time. CONCLUSIONS No evidence of right lower extremity DVT. Daron Lopez MD (Electronically Signed) Final Date: 10 February 2021 17:29 S
[2021-02-10 15:30] LABS: Basophils % 0.6 %; Eosinophils # 0.2 10^3/uL (0.0-0.8); Eosinophils % 2.4 %; Hematocrit 33.5 % (37.0-47.0); Hemoglobin 10.7 g/dL (11.5-15.3); Lymphocytes # 2.2 10^3/uL (0.8-4.8); Mean Corpuscular HGB Conc 31.9 g/dL (30.0-36.0); Mean Corpuscular Hemoglobin 29.2 pg (28.0-34.0); Mean Corpuscular Volume 91.3 fl (81-99); Mean Platelet Volume 9.3 fL (7.4-10.4); Monocytes # 0.8 10^3/uL (0.2-0.9); Monocytes % 11.1 %; Neutrophils # 3.84 10^3/uL (1.8-7.7); Neutrophils % 53.9 %; Nucleated Red Blood Cells % 0 %; Platelet Count 290 10^3/cmm (130-400); Red Blood Count 3.67 10^6/uL (4.1-5.3); Red Cell Distribution Width 12.7 % (12.1-15.1); White Blood Count 7.1 10^3/uL (4.0-10.0)
[2021-02-10 15:46] LABS: Alanine Aminotransferase 62 U/L (0-33); Alkaline Phosphatase 83 IU/L (35-105); Anion Gap 15.8 (5-19); Aspartate Amino Transferase 44 U/L (0-32); Blood Urea Nitrogen 26 mg/dL (6-20); C Reactive Protein 9.2 mg/L (0.0-4.9); Calcium 8.8 mg/dL (8.5-10.5); Carbon Dioxide 24 mmol/L (22-29); Chloride 104 mmol/L (98-107); Glomerular Filtration Rate 35.5 mL/min (90-130); Glucose 92 mg/dL (65-115); Lactate (Lactic Acid level) 0.7 mmol/L (0.5-2.2); Osmolality Calculated 292 mOsm/kg (285-295); Potassium 4.8 mmol/L (3.5-5.1); Sodium 139 mmol/L (136-145); Total Bilirubin 0.2 mg/dL (0.15-1.2)
[2021-02-10 15:48] LABS: Creatinine Clr Calc Pharmacy 36.2363
== END 2021-02-10 16:13 | disposition home or self-care (01) ==
PROVIDERS: Emergency Provider Physician Assistant; PCP Family Medicine
DX: L03.115 Cellulitis of right lower limb (principal); Z79.84 Long term (current) use of oral hypoglycemic drugs; E11.9 Type 2 diabetes mellitus without complications; Z86.19 Personal history of other infectious and parasitic diseases; M79.89 Other specified soft tissue disorders
CPT/HCPCS: 80053; 83605; 85025; 86140; 87040; 93971; 99283